=== PATIENT | male | born 1990 | race Caucasian/White ===

== ENCOUNTER 2016-11-19 17:06 | Emergency (ER) | payer SELFPAY ==
--- NOTE | 2016-11-19 17:59 | EDPHY ---
H & P Time Seen by Provider: 11/19/16 17:38 HPI/ROS: HPI Left thumb injury. 26-year-old male who describes himself is ambidextrous presents to the emergency department with complaint of a left thumb injury sustained from a table saw. Denies any other injury or complaint. He has had a tetanus shot within the last 5 years. ROS: Constitutional: No fever, no chills. No weakness. Eyes: No discharge. No changes in vision. ENT: No sore throat. No nasal congestion or rhinorrhea. Musculoskeletal: No back pain. No neck pain. As above. No other extremity pain. Skin: No rashes. Thumb laceration as noted. Neurological: No focal weakness or altered sensation. Past medical history: No significant past medical history. Social history: Nonsmoker. No alcohol, here by himself. Physical Exam: General Appearance: Alert, no distress. This patient is responding to questions appropriately and in full sentences. This patient appears well- hydrated and well-nourished. Eyes: Pupils equal and round no pallor or injection. No lid edema, erythema or injection. Left hand/thumb exam: Significant for a deep full-thickness avulsion type laceration that goes up the ventral aspect of the thumb pad from the interphalangeal joint through the nail bed on the radial dorsal aspect of the thumb to the proximal aspect of the nail bed. No pulsatile bleeding. He does have sensation in the thumb bilaterally distally. Neurological: Motor sensory function is grossly intact. Cranial nerves are normal. Gait is normal. Skin: Warm and dry, no rashes. Musculoskeletal: Neck is supple and nontender. Extremities are symmetrical. All joints range without pain or impingement. Psychiatric: No agitation. No depression. Database: EKG: Imaging: Left thumb x-ray series: Open, comminuted fracture of the tuft of the distal phalanx. Reviewed by myself. Procedures: Emergency department course: Digital block performed on the patient's left thumb using 0.5% bupivacaine without epinephrine. Patient sent for left thumb x-ray series. 6:30 p.m., pictures of x-rays as well as wound were sent orthopedic hand specialist Dr. Warren Millan by cell phone. The patient received 2 g of IV Ancef in the emergency department here at the [facility]. 6:50 p.m., Dr. Millan is requesting the patient be sent to the [facility] Emergency Department where he will evaluate and repair his thumb injury. This plan for transfer was discussed with the patient. He endorses. A friend will take him by private vehicle. I have discussed the case with the emergency department charge nurse. They are expecting him. There does not need to be an additional emergency physician evaluation at this time. Dr. Millan is planning on meeting the patient in the [facility] Emergency Department on his arrival. 7:05 p.m., patient transferred by private vehicle in stable condition. The left thumb was placed in an appropriate dressing. Differential Diagnosis: The differential diagnosis on this patient includes but is not limited to left thumb laceration. Left thumb fracture, subluxation, dislocation. This represents a partial list of diagnoses considered. These considerations are based on history, physical exam, past history, reassessment and diagnostic testing. Smoking Status: Former smoker Constitutional: Initial Vital Signs Temperature (C) 37.2 C 11/19/16 17:32 Heart Rate 74 11/19/16 17:32 Respiratory Rate 20 11/19/16 17:32 Blood Pressure 157/95 H 11/19/16 17:32 O2 Sat (%) 95 11/19/16 17:32 O2 Delivery Mode Room Air Allergies/Adverse Reactions: No Known Allergies Allergy (Unverified 11/19/16 17:30) Home Medications: Medication Instructions Recorded Cephalexin [Keflex (*)] 500 mg PO Q6 7 Days 11/19/16 Hydrocodone/APAP 5/325 [Ararat 1 - 2 tab PO Q4-6PRN PRN #20 tab 11/19/16 5/325 (*)] Medical Decision Making - Diagnostics Imaging Results: Imaging Impressions Hand X-Ray 11/19/16 17:41 Impression: Open comminuted mildly displaced fracture of the tuft of the distal pharynx of the thumb. - Data Points Medications Given: Discontinued Medications Cefazolin Sodium 2 gm/ Sodium (Chloride) 100 mls @ 200 mls/hr IV EDNOW ONE PRN Reason: Protocol Stop: 11/19/16 18:38 Last Admin: 11/19/16 18:39 Dose: 100 mls Departure - Departure Disposition: [facility] ER Clinical Impression: Laceration of left thumb Condition: Good Instructions: Finger Laceration (ED) Additional Instructions: Go directly to the [facility] Emergency Department as instructed by the nursing staff. They are expecting you. Dr. Millan of the Orthopedic Hand service will repair your thumb. Your follow-up will be with Dr. Millan. He will discuss this with you. Take antibiotics as prescribed through entire course of treatment. Ibuprofen dosin mg every 6 hours with meals for the next 3 days only. Ararat/Percocet dosin-2 every 4-[address] for [address] Do not drive on this medication. Referrals: Warren Millan MD [Medical Doctor] - As per Instructions Prescriptions: Cephalexin [Keflex (*)] 500 mg PO Q6 7 Days Hydrocodone/APAP 5/325 [Ararat 5/325 (*)] 1 - 2 tab PO Q4-6PRN PRN #20 tab PRN Reason: Pain, Moderate
[2016-11-19] MEDS ORDERED: ceFAZolin 2 GM in NS 100 ML IV ONE (18:09)
[2016-11-19] MEDS ORDERED: CEPHALEXIN 500MG PREPACK#4 BTL TAKEHOME ONE (21:10)
[2016-11-19] MEDS ORDERED: HYDROCOD/APAP 5/325 PREPACK#6 BTL TAKEHOME ONE (21:10)
[2016-11-19 21:23] VITALS: BP 167/93; PULSE 88; RESP 14; TEMP 99.3; O2SAT 95
--- NOTE | 2016-11-20 06:16 | GCON ---
[f rep st] CONSULTATION EMERGENCY ROOM AND PROCEDURE NOTE DATE OF CONSULTATION: 11/19/2016 REASON FOR CONSULTATION: Table saw injury left. 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 The patient was seen at [facility] and after consultation regarding his x-rays and extent of his injury, we elected t o bring him over to the [facility] for more definitive care. PAST MEDICAL HISTORY: ALLERGIES: None. MEDS: None. REVIEW OF SYSTEMS: Noncontributory. PHYSICAL EXAM: Alert and oriented, cooperative with exam. CHEST: Clear. CARDIAC: Regular rate an d rhythm. ABDOMEN: Bowel sounds positive. Nontender. Examination left upper extremity reveals no rmal sensation on the radial border of the thumb, but decreased sensation over the thumb tip on the ulnar side. The thumb had a large flap that extended from the dorsal aspect of the distal phalanx t o the volar aspect of the distal phalanx. The flap included the nail bed and matrix. A portion of the volar aspect of the skin was missing and by the orientation of the saw blade injury, the ulnar d igital nerve to the thumb appeared to be absent. TREATMENT: The patient was appropriately prepped and draped. We subsequently thoroughly lavaged wi th copious amounts of normal saline using irrigation tube system. The nail was then extracted using a [place] elevator and hemostat. The base of the nail was also extracted. This gave us good exposur e of the nail matrix, which had a macerated injury. The volar skin was debrided where there were so me nonviable small flaps. The fracture was debrided, thoroughly lavaged. We then apposed the epony chial portions of the injury with a 5-0 nylon suture. The nail matrix was then reapproximated with a 5-0 Vicryl suture. The flap was then reapproximated with 5-0 nylon sutures. A sterile compressio n dressing was applied, followed by a cage. The patient tolerated the procedure well, was transferr ed home. PLAN: Our plan is to keep him on Keflex p.o. antibiotic 500 mg p.o. q.6 hours x1 week. He will use Percocet 1-2 tabs p.o. q.4 hours p.r.n. pain. He will continue continued elevate. Avoid icing for fear of decreasing the circulation to the tip of the finger. He will continue in a sterile dressin g and cage until seen in followup at 8 to 9 days. /[id number]/MODL
== END 2016-11-19 21:21 | disposition home or self-care (01) ==
LOC: CED 17:06
PROC: 0HQQXZZ Repair Finger Nail, External Approach (ICD-10-PCS; principal; 2016-11-19)
DX: S61.112A Laceration without foreign body of left thumb with damage to nail, initial encounter (principal); W31.2XXA Contact with powered woodworking and forming machines, initial encounter; Y99.8 Other external cause status; Y93.89 Activity, other specified; Z87.891 Personal history of nicotine dependence
CPT/HCPCS: 73130-PO; 96365; J0690; L3925